=== PATIENT | female | born 1955 | race Caucasian/White ===

== ENCOUNTER → 2017-02-21 | Outpatient (CLI) | payer BC ==
[~2017-02-21] MED LIST: NO HOME MEDICATIONS; PERCOCET 325 MG1 TA2 PO; PERCOCET 325 MG1 TA3 PO; SYNTHROID0.1 MG/TAB PO; ULTRAM 50MG TAB50 MG PO; ZESTRIL 20MG TA20 MG PO; ZESTRIL5 MG PO
== END ==
LOC: MC.RAD 07:50
DX: Z12.31 Encounter for screening mammogram for malignant neoplasm of breast (principal); N63 Unspecified lump in breast

== ENCOUNTER → 2017-02-27 | Outpatient (CLI) | payer BC | LOC: MC.RAD 08:20 | DX: N63 Unspecified lump in breast (principal) ==

== ENCOUNTER → 2017-03-05 | Outpatient (CLI) | payer BC | LOC: MC.RAD 12:58 | DX: N60.82 Other benign mammary dysplasias of left breast (principal); R92.0 Mammographic microcalcification found on diagnostic imaging of breast ==

== ENCOUNTER → 2017-03-28 | Outpatient (CLI) | payer BC | LOC: COL.RAD 10:20 | DX: M41.86 Other forms of scoliosis, lumbar region (principal); M51.36 Other intervertebral disc degeneration, lumbar region; Z98.890 Other specified postprocedural states ==

== ENCOUNTER → 2017-09-23 | Outpatient (CLI) | payer BC | LOC: COL.RAD 14:30 | DX: K57.32 Diverticulitis of large intestine without perforation or abscess without bleeding (principal); Z90.49 Acquired absence of other specified parts of digestive tract | CPT/HCPCS: J7050; Q9967 ==

== ENCOUNTER → 2018-08-20 | Outpatient (CLI) | payer BC | LOC: COL.RAD 09:07 | DX: M48.07 Spinal stenosis, lumbosacral region (principal); M51.16 Intervertebral disc disorders with radiculopathy, lumbar region; M47.26 Other spondylosis with radiculopathy, lumbar region; Z96.9 Presence of functional implant, unspecified ==

== ENCOUNTER → 2018-08-25 | Outpatient (CLI) | payer BC | LOC: MC.RAD 08:20 | DX: Z12.31 Encounter for screening mammogram for malignant neoplasm of breast (principal) ==

== ENCOUNTER 2019-02-05 11:00 | Outpatient (RCR) | payer BC | END 2019-02-09 | LOC: WSPT | DX: M43.8X9 Other specified deforming dorsopathies, site unspecified (principal); M54.5 Low back pain ==

== ENCOUNTER → 2019-10-15 | Outpatient (CLI) | payer BC | LOC: MC.RAD 09:24 | DX: Z12.31 Encounter for screening mammogram for malignant neoplasm of breast (principal) ==

== ENCOUNTER → 2020-10-17 | Outpatient (CLI) | payer BC | LOC: MC.RAD 10:51 | DX: Z12.31 Encounter for screening mammogram for malignant neoplasm of breast (principal) ==

== ENCOUNTER → 2021-01-16 | Outpatient (CLI) | payer BC | LOC: COL.RAD 12:24 | DX: Q61.02 Congenital multiple renal cysts (principal); E04.1 Nontoxic single thyroid nodule ==

== ENCOUNTER → 2021-03-14 | Outpatient (CLI) | payer BC | LOC: COL.RAD 11:12 | DX: M47.812 Spondylosis without myelopathy or radiculopathy, cervical region (principal); G64 Other disorders of peripheral nervous system; R53.1 Weakness ==

== ENCOUNTER 2021-04-18 16:34 | Emergency (ER) | payer MEDICARE, BC ==
[~2021-04-18] VITALS: Ht 160 cm; Wt 90.9 kg
[2021-04-18 16:35] VITALS: TEMP 97
[2021-04-18 17:07] LABS: BASO # 0.1 (0.0-0.2); BASO % 0.9 % (0.0-2.0); EOS # 0.3 (0.0-0.7); EOS % 3.4 % (0-4.0); GRAN # 5.4 (1.4-6.5); GRAN % 59.1 % (42.2-75.2); HEMATOCRIT 42.6 % (37.0-47.0); LYMPH # 2.6 (1.2-3.4); LYMPH % 28.4 % (20.0-51.0); MEAN CELL VOLUME 92 fl (80.0-100.0); MEAN CORPUSCULAR HEMOGLOBIN 30 pg (27.0-31.0); MEAN CORPUSCULAR HGB CONC 33 g/dl (33.0-37.0); MEAN PLATELET VOLUME 9.6 fl (7.4-10.4); MONO # 0.7 (0.1-0.6); MONO % 7.9 % (1.7-9.3); PLATELET COUNT 237 K/mm3 (130-400); RED BLOOD COUNT 4.63 M/mm3 (4.10-5.30)
[2021-04-18 17:15] LABS: ALANINE AMINOTRANSFERASE 13 U/L (4-34); ALBUMIN 3.8 gm/dL (3.5-5.0); ALKALINE PHOSPHATASE 77 U/L (50-136); ANION GAP 6 mmol/L (7-16); AST,SGOT 20 U/L (15-37); BILIRUBIN,TOTAL 0.2 mg/dL (0.0-1.0); BLOOD UREA NITROGEN 16 mg/dL (7-17); CALCIUM 8.9 mg/dL (8.4-10.2); CARBON DIOXIDE 22 mmol/L (22-30); CHLORIDE 113 mmol/L (98-107); CREATININE, serum 0.75 (0.52-1.25); GLUCOSE 124 mg/dL (74-106); SODIUM 141 mmol/L (137-145); TOTAL PROTEIN 7.4 gm/dL (6.4-8.2)
[2021-04-18 17:37] LABS: TROPONIN-I < 0.012 ng/mL (0.000-0.035)
[2021-04-18 17:44] LABS: COLLECTION METHOD CLEAN CATCH
[2021-04-18 17:59] LABS: MUCOUS Present /lpf; PH 5 (5-8); SQUAMOUS EPITHELIAL 0-2 /hpf; URINE APPEARANCE Hazy; URINE BACTERIA Rare /hpf; URINE BILIRUBIN Negative (NEGATIVE); URINE BLOOD 1+ (NEGATIVE); URINE COLOR Yellow; URINE GLUCOSE Negative (NEGATIVE); URINE KETONE Negative (NEGATIVE); URINE LEUKOCYTE ESTERASE Trace (NEGATIVE); URINE NITRATE Negative (NEGATIVE); URINE PROTEIN(semi-quant) Negative (NEGATIVE); URINE WBC 0-2 /hpf
[2021-04-18 19:05] VITALS: BP 131/84; PULSE 57
== END 2021-04-18 19:07 | disposition home or self-care (01) ==
LOC: COL.ER 16:34
PROVIDERS: Nurse Practitioner Primary Care
DX: E03.9 Hypothyroidism, unspecified (principal); I10 Essential (primary) hypertension; G89.29 Other chronic pain; M54.9 Dorsalgia, unspecified; Z20.822 Contact with and (suspected) exposure to COVID-19; Z87.891 Personal history of nicotine dependence; Z79.899 Other long term (current) drug therapy; Z79.890 Hormone replacement therapy; Z79.891 Long term (current) use of opiate analgesic

== ENCOUNTER → 2021-05-19 | Outpatient (CLI) | payer MEDICARE, BC | LOC: COL.RAD 14:03 | DX: M48.02 Spinal stenosis, cervical region (principal) | CPT/HCPCS: A9585 ==

== ENCOUNTER → 2021-06-12 | Outpatient (CLI) | payer MEDICARE, BC | LOC: COL.RAD 07:51 | DX: R42 Dizziness and giddiness (principal) | CPT/HCPCS: A9585 ==

== ENCOUNTER → 2021-08-28 | Outpatient (CLI) | payer MEDICARE | LOC: COL.CARD 07:00 | DX: Z01.818 Encounter for other preprocedural examination (principal) ==

== ENCOUNTER 2022-09-07 11:33 | Outpatient (RCR) | payer MEDICARE ==
[~2022-09-07 11:33] MED LIST changes: +ASPIRIN E.C. 8181 MG PO; +B COMPLEX & B121 TAB PO; +BRILINTA90 MG PO; +GLEEVEC100 MG PO; +IMDUR 60MG60 MG/TAB PO; +IMITREX100 MG PO; +KEPPRA1000 MG PO; +LIPITOR 80MG80 MG PO; +NITROSTAT0.4 MG/TAB SL; +TOPAMAX 25MG25 M1 PO; +TOPROL XL 25MG25 MG PO; +ZOFRAN 4MG T4 MG/TAB PO
== END 2022-09-25 | disposition home or self-care (01) ==
LOC: COL.CR
DX: Z48.812 Encounter for surgical aftercare following surgery on the circulatory system (principal); Z95.5 Presence of coronary angioplasty implant and graft

== ENCOUNTER 2022-11-27 10:56 | Day surgery (SDC) | payer MEDICARE ==
[2022-11-27] VITALS (13 sets, daily range): BP systolic 118–139; BP diastolic 59–95; PULSE 40–75; TEMP 97.6–99.7
[~2022-11-27] VITALS: Ht 160 cm; Wt 89.0 kg
[~2022-11-27 10:56] MED LIST changes: +SYNTHROID 0.10.15 MG PO; -SYNTHROID0.1 MG/TAB PO
[2022-11-27 11:58] LABS: BASO # 0.1 K/mm3 (0.0-0.2); EOS # 0.2 K/mm3 (0.0-0.7); EOS % 2.9 % (0.0-4.0); GRAN # 4.3 K/mm3 (1.4-6.5); GRAN % 63.4 % (42.2-75.2); HEMATOCRIT 40.6 % (37.0-47.0); HEMOGLOBIN 13.2 g/dl (12.5-16.0); LYMPH # 1.7 K/mm3 (1.2-3.4); LYMPH % 24.5 % (20.0-51.0); MEAN CELL VOLUME 90 fl (80.0-100.0); MEAN CORPUSCULAR HEMOGLOBIN 29 pg (27-31); MEAN CORPUSCULAR HGB CONC 33 g/dl (33.0-37.0); MEAN PLATELET VOLUME 9.7 fl (7.4-10.4); MONO # 0.5 K/mm3 (0.1-0.6); MONO % 7.6 % (1.7-9.3); PLATELET COUNT 230 K/mm3 (130-400); RED BLOOD COUNT 4.49 M/mm3 (4.10-5.30); REDCELL DISTRIBUTION WIDTH-CV 13.3 % (11.5-14.5)
[2022-11-27 12:00] LABS: PROTHROMBIN TIME 11.9 SECONDS (9.7-12.8)
[2022-11-27] MEDS ORDERED: PLAVIX 75MG TAB75 MG PO (12:03)
[2022-11-27] MEDS ORDERED: TOPAMAX 25MG25 M1 PO (12:05)
[2022-11-27] MEDS ORDERED: LIPITOR 80MG80 MG PO (12:06)
[2022-11-27] MEDS ORDERED: ASPIRIN 81M81 MG/TA2 PO (12:07)
[2022-11-27] MEDS ORDERED: NITROSTAT0.4 MG/TAB SL (12:07)
[2022-11-27] MEDS ORDERED: THE MEDICINE S200 M2 PO (12:12)
[2022-11-27] MEDS ORDERED: VENTOLIN0.09 MG IH (12:12)
[2022-11-27 12:13] LABS: CALCIUM 8.7 mg/dL (8.4-10.2); CREATININE, serum 0.79 mg/dL (0.57-1.11)
--- NOTE | 2022-11-27 13:00 | NUR ---
Pt to procedure at this time.
--- NOTE | 2022-11-27 13:09 | NUR ---
SEE MERGE FOR ALL MEDICATIONS, VITAL SIGNS AND INTERVENTIONS.
--- NOTE | 2022-11-27 14:40 | NUR ---
Patient arrived to the unit, alert and oriented x 4, VSS. Denies any pain at this time. Starting post op VS. Continue monitoring.
--- NOTE | 2022-11-27 20:30 | NUR ---
Initial shift assessment done- VSS, left arm in sling, left chest dressing dry and intact-- has ice to incision, states pain 5/10-will give the fentanyl as ordered, Up to bathroom with assist- steady on feet.
[2022-11-28 03:26] VITALS: BP 124/66; PULSE 70; TEMP 98
--- NOTE | 2022-11-28 06:00 | NUR ---
Did get some sleep last night-- states the tylenol did help for incisional pain-- pacemaker site dry and intact-- does have some bruising starting to show - very tender.
[2022-11-28 08:15] VITALS: BP 111/65; PULSE 70; TEMP 98
--- NOTE | 2022-11-28 10:07 | NUR ---
Initial visit; Patient thanked [employer] for looking in on her and offering God's blessings.
[2022-11-28] MEDS ORDERED: CEPHALEXIN500 M1 PO (11:59)
[2022-11-28] MEDS ORDERED: TORADOL 10MG TA10 MG PO (12:04)
--- NOTE | 2022-11-28 12:30 | NUR ---
Discharge instructions given both verbal and handwritten. Discussed f/u appt, s/s of infection, home medications and when to return to ED. Verbalizes understanding/denies questions/concerns. INT to left wrist DCd cath intact. Escorted off patricio via wheelchair by PCT and family in stable condition.
[2022-11-28 12:43] VITALS: BP 130/55
== END 2022-11-28 13:31 | disposition home or self-care (01) ==
LOC: COL.CAR 10:56 → MEDICAL 14:52 → COL.CAR 11-28 13:31
PROVIDERS: Internal Medicine Cardiovascular Disease
DX: I49.5 Sick sinus syndrome (principal); E66.9 Obesity, unspecified; I49.3 Ventricular premature depolarization; I10 Essential (primary) hypertension; E78.5 Hyperlipidemia, unspecified; I25.10 Atherosclerotic heart disease of native coronary artery without angina pectoris; I34.0 Nonrheumatic mitral (valve) insufficiency; Z79.82 Long term (current) use of aspirin; Z68.34 Body mass index [BMI] 34.0-34.9, adult; Z87.891 Personal history of nicotine dependence; Z79.899 Other long term (current) drug therapy
CPT/HCPCS: OP; C1785; C1894; C1898; J0690; J2250; J3010; Q9967